=== PATIENT | male | born 1965 | race Caucasian/White ===

== ENCOUNTER → 2016-06-14 | Outpatient (REF) ==
[~2016-06-14] MED LIST: NO HOME MEDICATIONS
== END ==
LOC: WSOH 12:04
DX: Z11.1 Encounter for screening for respiratory tuberculosis (principal)

== ENCOUNTER → 2016-07-02 | Outpatient (REF) | LOC: WSOH 06-30 09:26 | DX: Z02.1 Encounter for pre-employment examination (principal) ==

== ENCOUNTER 2020-11-29 09:21 | Emergency (ER) | payer BC ==
[~2020-11-29] VITALS: Ht 175.3 cm; Wt 79.5 kg
[2020-11-29 09:27] VITALS: TEMP 98.2
[2020-11-29] MEDS ORDERED: MOBIC15 MG PO (09:45)
[2020-11-29 09:55] LABS: BASO % 0.5 % (0.0-2.0); EOS # 0.1 (0.0-0.7); EOS % 2.8 % (0-4.0); GRAN # 3.2 (1.4-6.5); HEMATOCRIT 43.6 % (42.0-52.0); HEMOGLOBIN 14.9 g/dl (13.5-18.0); LYMPH # 0.7 (1.2-3.4); LYMPH % 15.5 % (20.0-51.0); MEAN CELL VOLUME 89 fl (80.0-100.0); MEAN CORPUSCULAR HEMOGLOBIN 30 pg (27.0-31.0); MEAN CORPUSCULAR HGB CONC 34 g/dl (33.0-37.0); MEAN PLATELET VOLUME 10.8 fl (7.4-10.4); MONO # 0.3 (0.1-0.6); PLATELET COUNT 175 K/mm3 (130-400); RED BLOOD COUNT 4.92 M/mm3 (4.20-5.60); REDCELL DISTRIBUTION WIDTH-CV 13.2 % (11.5-14.5)
[2020-11-29 10:03] LABS: ALANINE AMINOTRANSFERASE 22 U/L (4-49); ALBUMIN 4.1 gm/dL (3.5-5.0); ALKALINE PHOSPHATASE 49 U/L (50-136); ANION GAP 3 mmol/L (7-16); AST,SGOT 25 U/L (15-37); BILIRUBIN,TOTAL 0.5 mg/dL (0.0-1.0); BLOOD UREA NITROGEN 14 mg/dL (9-20); CALCIUM 9.3 mg/dL (8.4-10.2); CARBON DIOXIDE 27 mmol/L (22-30); CHLORIDE 108 mmol/L (98-107); CREATININE, serum 0.93 (0.66-1.25); GLUCOSE 146 mg/dL (74-106); POTASSIUM 4.3 mmol/L (3.4-5.0); SODIUM 138 mmol/L (137-145); TOTAL PROTEIN 6.9 gm/dL (6.4-8.2)
[2020-11-29 10:04] LABS: PROTHROMBIN TIME 10.6 SECONDS (9.7-12.8)
[2020-11-29 10:07] LABS: PARTIAL THROMBOPLASTIN TIME 27.6 SECONDS (26.0-37.0)
[2020-11-29 10:16] LABS: TROPONIN-I < 0.012 ng/mL (0.000-0.035)
[2020-11-29 12:35] VITALS: BP 113/86; PULSE 58
== END 2020-11-29 12:35 | disposition home or self-care (01) ==
LOC: COL.ER 09:21
PROVIDERS: Family Medicine
DX: M25.512 Pain in left shoulder (principal); R07.89 Other chest pain